=== PATIENT | female | born 1995 | race Caucasian/White ===

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

== ENCOUNTER → 2017-01-31 | Outpatient (CLI) | payer OTHER ==
--- NOTE | 2017-01-31 11:03 | REP ---
Clinical: Cough . Comparison: None . Technique: PA and lateral. Findings: The mediastinum and cardiac silhouette are normal. The lung howe are clear and without acute consolidation, effusion, or pneumothorax. The skeletal structures are intact and normal. Impression: 1. No acute cardiopulmonary process. Signed by Seymour Solomon MD 01/31/2017 10:54 A
== END ==
LOC: M LRY 10:36
PROVIDERS: ATTEND Nurse Practitioner Family
DX: R05 Cough (principal)

== ENCOUNTER 2017-02-12 08:45 | Outpatient (RCR) | payer OTHER, SELFPAY | END 2017-02-13 | LOC: M OUTALCOH 08:45 | PROVIDERS: ATTEND Psychiatry & Neurology Psychiatry | DX: F12.20 Cannabis dependence, uncomplicated (principal); F14.20 Cocaine dependence, uncomplicated ==

== ENCOUNTER 2017-02-14 12:49 | Outpatient (RCR) | payer OTHER | END 2017-03-16 | LOC: M OUTALCOH 12:49 | DX: F12.20 Cannabis dependence, uncomplicated (principal); F14.20 Cocaine dependence, uncomplicated ==

== ENCOUNTER 2017-03-27 14:14 | Outpatient (RCR) | payer OTHER | END 2017-04-16 | LOC: M OUTALCOH 04-09 10:00 | DX: F12.20 Cannabis dependence, uncomplicated (principal); F14.20 Cocaine dependence, uncomplicated ==

== ENCOUNTER 2017-05-08 10:10 | Outpatient (RCR) | payer OTHER | END 2017-05-14 | LOC: M OUTALCOH 10:10 | DX: F12.20 Cannabis dependence, uncomplicated (principal); F14.20 Cocaine dependence, uncomplicated ==

== ENCOUNTER 2017-05-15 15:17 | Outpatient (RCR) | payer OTHER | END 2017-06-14 | LOC: M OUTALCOH 15:17 | DX: F12.20 Cannabis dependence, uncomplicated (principal); F14.20 Cocaine dependence, uncomplicated ==

== ENCOUNTER → 2017-05-23 | Outpatient (REF) | payer OTHER ==
[2017-05-23 15:16] LABS: CHLAMYDIA DNA AMPLIFICATION NEGATIVE (NEGATIVE); GC DNA AMPLIFICATION NEGATIVE (NEGATIVE)
== END ==
LOC: M SFHCWAGY 12:56
DX: Z11.3 Encounter for screening for infections with a predominantly sexual mode of transmission (principal)
CPT/HCPCS: 87591

== ENCOUNTER → 2017-05-30 | Outpatient (REF) | payer OTHER ==
[2017-05-30 17:12] LABS: HEMATOCRIT 35.4 % (36.0-47.0); HEMOGLOBIN 11.3 g/dl (12.0-16.0); MEAN CORPUSCULAR HEMOGLOBIN 28.3 pg (27.0-33.0); MEAN CORPUSCULAR HGB CONC 31.9 g/dl (32.0-36.5); MEAN CORPUSCULAR VOLUME 88.7 fl (80.0-96.0); PLATELET COUNT, AUTOMATED 197 10^3/uL (150-450); RED BLOOD COUNT 3.99 10^6/uL (4.00-5.40); RED CELL DISTRIBUTION WIDTH 13.4 % (11.5-14.5); WHITE BLOOD COUNT 7.1 10^3/uL (4.0-10.0)
[2017-05-30 17:20] LABS: ANION GAP 7 MEQ/L (8-16); BLOOD UREA NITROGEN 12 MG/DL (7-18); CALCIUM LEVEL 8.7 MG/DL (8.5-10.1); CARBON DIOXIDE LEVEL 28 MEQ/L (21-32); CHLORIDE LEVEL 106 MEQ/L (98-107); CREATININE FOR GFR 0.58 MG/DL (0.55-1.30); GLUCOSE, FASTING 81 MG/DL (70-100); POTASSIUM SERUM 4.1 MEQ/L (3.5-5.1); SODIUM LEVEL 141 MEQ/L (136-145)
== END ==
LOC: M SFHCLERA 11:21
DX: K92.1 Melena (principal)
CPT/HCPCS: 80048

== ENCOUNTER 2017-06-18 09:20 | Outpatient (RCR) | payer OTHER | END 2017-07-14 | LOC: M OUTALCOH 06-23 08:45 | DX: F12.20 Cannabis dependence, uncomplicated (principal); F14.20 Cocaine dependence, uncomplicated ==

== ENCOUNTER → 2018-02-17 | Outpatient (REF) | payer OTHER ==
[2018-02-17 18:02] LABS: CHLAMYDIA DNA AMPLIFICATION NEGATIVE (NEGATIVE); GC DNA AMPLIFICATION NEGATIVE (NEGATIVE)
== END ==
LOC: M SFHCWAGY 13:25
DX: Z11.3 Encounter for screening for infections with a predominantly sexual mode of transmission (principal)
CPT/HCPCS: 87591

== ENCOUNTER 2018-03-23 04:54 | Emergency (ER) | payer OTHER ==
[~2018-03-23] VITALS: Ht 157.5 cm; Wt 52.3 kg
[2018-03-23 04:54] VITALS: BP 148/85
[2018-03-23] MEDS ORDERED: KETOROLAC 60 MG/2 ML VIAL (J1885) IM ONE (06:15)
--- NOTE | 2018-03-23 07:45 | REP ---
Clinical: Trauma. Technique: AP, lateral, bilateral oblique and sunrise views left knee. Findings: The osseous structures and joint spaces are intact and normal. There is no evidence for acute fracture or dislocation. No joint effusion is appreciated. Surrounding soft tissues are unremarkable. No subcutaneous emphysema or radiodense foreign body. Impression: Normal examination. No acute fracture or dislocation. Electronically Signed by Seymour Solomon MD 03/23/2018 07:37 A
== END 2018-03-23 06:15 | disposition home or self-care (01) ==
LOC: M ED 04:54
DX: S80.02XA Contusion of left knee, initial encounter (principal); Y92.009 Unspecified place in unspecified non-institutional (private) residence as the place of occurrence of the external cause; W22.8XXA Striking against or struck by other objects, initial encounter

== ENCOUNTER → 2018-05-13 | Outpatient (REF) | payer OTHER ==
[2018-05-13 18:18] LABS: CHLAMYDIA DNA AMPLIFICATION NEGATIVE (NEGATIVE); GC DNA AMPLIFICATION NEGATIVE (NEGATIVE)
== END ==
LOC: M SFHCLERA 09:55
PROVIDERS: ATTEND Physician Assistant
DX: N89.8 Other specified noninflammatory disorders of vagina (principal)

== ENCOUNTER → 2018-08-14 | Outpatient (REF) | payer MEDICAID, OTHER ==
[2018-08-14 15:28] LABS: CHLAMYDIA DNA AMPLIFICATION POSITIVE (NEGATIVE); GC DNA AMPLIFICATION NEGATIVE (NEGATIVE)
== END ==
LOC: M SFHCWAGY 11:46
PROVIDERS: ATTEND Family Medicine
DX: Z11.3 Encounter for screening for infections with a predominantly sexual mode of transmission (principal)

== ENCOUNTER → 2018-08-25 | Outpatient (REF) | payer MEDICAID ==
[2018-08-25 14:23] LABS: HCG, SERUM QUALITATIVE POSITIVE (NEGATIVE)
== END ==
LOC: M SFHCWAGY 11:53
PROVIDERS: ATTEND Nurse Practitioner Family
DX: N92.6 Irregular menstruation, unspecified (principal)

== ENCOUNTER 2018-08-30 11:32 | Emergency (ER) | payer MEDICAID, OTHER ==
[~2018-08-30] VITALS: Ht 157.5 cm; Wt 54.5 kg
[2018-08-30] MEDS ORDERED: NS 1,000 ML IV ONE (12:00)
[2018-08-30] MEDS ORDERED: METOCLOPRAMIDE INJ 10MG/2ML VIAL (J2765) IV ONE (12:00)
[2018-08-30 12:14] LABS: BASO % 0.7 % (0.0-1.0); EOS # 0.1 10^3/uL (0.0-0.50); EOS % 2.4 % (0.0-3.0); HEMATOCRIT 38.2 % (36.0-47.0); HEMOGLOBIN 12.8 g/dl (12.0-15.5); LYMPH # 0.8 10^3/uL (1.5-6.5); LYMPH % 14.5 % (24.0-44.0); MEAN CORPUSCULAR HEMOGLOBIN 30.5 pg (27.0-33.0); MEAN CORPUSCULAR HGB CONC 33.5 g/dl (32.0-36.5); MEAN CORPUSCULAR VOLUME 91.2 fl (80.0-96.0); MONO # 0.5 10^3/uL (0.0-0.8); MONO % 7.8 % (0.0-5.0); NEUTROPHILS # 4.3 10^3/uL (1.8-7.7); NEUTROPHILS % 74.4 % (36.0-66.0); PLATELET COUNT, AUTOMATED 194 10^3/uL (150-450); RED BLOOD COUNT 4.19 10^6/uL (4.00-5.40); WHITE BLOOD COUNT 5.7 10^3/uL (4.0-10.0)
[2018-08-30 12:23] LABS: BILIRUBIN, URINE MANUAL OBSCURED (NEGATIVE); GLUCOSE, URINE (UA) MANUAL NEGATIVE (NEGATIVE); KETONE, URINE MANUAL OBSCURED mg/dL (NEGATIVE); UROBILINOGEN, URINE MANUAL OBSCURED mg/dl (NORMAL)
[2018-08-30 12:42] LABS: BLOOD UREA NITROGEN 11 MG/DL (7-18); CALCIUM LEVEL 8.8 MG/DL (8.5-10.1); CARBON DIOXIDE LEVEL 29 MEQ/L (21-32); CHLORIDE LEVEL 108 MEQ/L (98-107); GLOMERULAR FILTRATION RATE > 60.0 (>60); GLUCOSE, FASTING 96 MG/DL (70-100); HCG, SERUM QUANTITATIVE 9 MIU/ML; SODIUM LEVEL 140 MEQ/L (136-145)
[2018-08-30 12:43] LABS: BACTERIA, URINE NONE SEEN; HYALINE CAST, URINE NONE SEEN /lpf (0-1); MUCUS, URINE SMALL AMOUNT (NEGATIVE); RBC, URINE TNTC /hpf (0-3); SQUAMOUS EPITHELIAL CELL URINE MOD AMOUNT /hpf (SMALL AMT)
[2018-08-30 13:12] VITALS: BP 114/73
[2018-08-30] MEDS ORDERED: REGL10TA6 PO (13:16)
--- NOTE | 2018-08-31 07:01 | REP ---
PELVIC ULTRASOUND: Real-time sonographic evaluation of pelvic performed utilizing transabdominal and endovaginal technique. The uterus measures 7.6 x 5.1 x 3.5 cm. Endometrial thickness is 4 mm. There is no endometrial fluid collection or gestational sac. Ovaries are normal in size and echotexture, right ovary measuring 2.2 x 2.2 x 1.5 cm and left ovary 2.9 x 1.6 x 2.2 cm. There is no adnexal mass or free fluid. No torsion is seen of either ovary. Differential diagnosis would include very early intrauterine , missed AB or ectopic . Suggest correlation with serial quantitative beta HCG values. Electronically Signed by Timothy Rodriguez MD 08/31/2018 08:27 A
== END 2018-08-30 13:39 | disposition home or self-care (01) ==
LOC: M ED 11:32
DX: Z32.01 Encounter for pregnancy test, result positive (principal); O20.8 Other hemorrhage in early pregnancy; O99.89 Other specified diseases and conditions complicating pregnancy, childbirth and the puerperium; R10.2 Pelvic and perineal pain; O99.341 Other mental disorders complicating pregnancy, first trimester; Z88.8 Allergy status to other drugs, medicaments and biological substances
CPT/HCPCS: 76801; 76817; 80048; 81000; 84702; 85025; 86850; 86900; 86901; 87086; 93976; 96361; 96374; 99284; J2765

== ENCOUNTER 2018-09-03 14:04 | Emergency (ER) | payer MEDICAID ==
[~2018-09-03] VITALS: Ht 157.5 cm; Wt 54.1 kg
[~2018-09-03 14:04] MED LIST: REGL10TA6 PO
[2018-09-03 15:44] VITALS: BP 118/73
== END 2018-09-03 15:55 | disposition home or self-care (01) ==
LOC: M ED 14:04
DX: O03.9 Complete or unspecified spontaneous abortion without complication (principal); O04.80 (Induced) termination of pregnancy with unspecified complications; Z72.0 Tobacco use; F19.10 Other psychoactive substance abuse, uncomplicated; Z79.899 Other long term (current) drug therapy

== ENCOUNTER → 2018-10-16 | Outpatient (REF) | payer OTHER | LOC: M LAB REF 09:14 | PROVIDERS: ATTEND Physician Assistant | DX: L03.115 Cellulitis of right lower limb (principal) ==

== ENCOUNTER → 2018-10-26 | Outpatient (REF) | payer OTHER ==
[2018-10-26 22:05] LABS: APPEARANCE, URINE CLOUDY (CLEAR); BACTERIA, URINE AUTO 2+ (NEGATIVE); BILIRUBIN, URINE AUTO NEGATIVE (NEGATIVE); BLOOD, URINE BLOOD NEGATIVE (NEGATIVE); COLOR, URINE YELLOW (YELLOW); GLUCOSE, URINE (UA) AUTO NEGATIVE (NEGATIVE); KETONE, URINE AUTO TRACE mg/dL (NEGATIVE); LEUKOCYTE ESTERASE, URINE AUTO 2+ (NEGATIVE); MUCUS, URINE LARGE (NEGATIVE); NITRITE, URINE AUTO NEGATIVE (NEGATIVE); PROTEIN, URINE AUTO 1+ mg/dL (NEGATIVE); RBC, URINE AUTO 3 /HPF (0-3); SPECIFIC GRAVITY URINE AUTO 1.027 (1.002-1.035); SQUAMOUS EPITHELIAL CELL UR AU 15 /HPF (0-6); UROBILINOGEN, URINE AUTO 0.2 mg/dL (0.0-2.0); WBC, URINE AUTO 23 /HPF (0-3)
== END ==
LOC: M LAB REF 08:14
PROVIDERS: ATTEND Physician Assistant Medical
DX: N39.0 Urinary tract infection, site not specified (principal)

== ENCOUNTER → 2018-11-09 | Outpatient (REF) | payer OTHER ==
[~2018-11-09] MED LIST changes: +BUSP10TA PO; +CYMB1CAP4 PO; +LEVO500T3 PO; +METR-265 PO; +SULF1TAB93; +SULF400T14 PO; +[UNRECOGNIZED DRUG - CODE] PO
[2018-11-09 21:16] LABS: CHLAMYDIA DNA AMPLIFICATION NEGATIVE (NEGATIVE); GC DNA AMPLIFICATION NEGATIVE (NEGATIVE)
== END ==
LOC: M LAB REF 16:32
PROVIDERS: ATTEND Internal Medicine
DX: N76.0 Acute vaginitis (principal)

== ENCOUNTER 2019-01-06 17:59 | Inpatient (IN) | payer OTHER ==
[~2019-01-06] VITALS: Ht 157.5 cm; Wt 51.9 kg
[~2019-01-06 17:59] MED LIST changes: -BUSP10TA PO; -CYMB1CAP4 PO; -LEVO500T3 PO; -METR-265 PO; -SULF1TAB93; -SULF400T14 PO; -[UNRECOGNIZED DRUG - CODE] PO
[2019-01-06] MEDS ORDERED: METR-265 PO (18:14)
[2019-01-06] MEDS ORDERED: SULF1TAB93 (18:14)
[2019-01-06] MEDS ORDERED: LEVO500T3 PO (18:14)
[2019-01-06] MEDS ORDERED: SULF1TAB72 PO (19:29)
[2019-01-06] MEDS ORDERED: BUSP10TA PO (19:30)
[2019-01-06] MEDS ORDERED: CYMB1CAP4 PO (19:31)
[2019-01-06] MEDS ORDERED: NS 1,000 ML IV ONE (20:00)
[2019-01-06] MEDS ORDERED: ACETAMINOPHEN TAB 650MG DOSE (2X325MG) PO ONE (20:00)
[2019-01-06 20:15] LABS: BASO % 0.4 % (0.0-1.0); EOS % 0.7 % (0.0-3.0); HEMATOCRIT 35.7 % (36.0-47.0); HEMOGLOBIN 12.5 g/dl (12.0-15.5); LYMPH # 0.7 10^3/uL (1.5-5.0); LYMPH % 11.4 % (24.0-44.0); MEAN CORPUSCULAR VOLUME 85.6 fl (80.0-96.0); MONO # 0.3 10^3/uL (0.0-0.8); MONO % 5.3 % (0.0-5.0); NEUTROPHILS # 4.7 10^3/uL (1.5-8.5); NEUTROPHILS % 81.8 % (36.0-66.0); PLATELET COUNT, AUTOMATED 172 10^3/uL (150-450); RED BLOOD COUNT 4.17 10^6/uL (4.00-5.40); WHITE BLOOD COUNT 5.7 10^3/uL (4.0-10.0)
[2019-01-06 20:42] LABS: ALBUMIN 4.1 GM/DL (3.2-5.2); ALT/SGPT 31 U/L (12-78); BILIRUBIN,DIRECT 0.2 MG/DL (0.0-0.2); BILIRUBIN,TOTAL 0.8 MG/DL (0.2-1.0); BLOOD UREA NITROGEN 13 MG/DL (7-18); CALCIUM LEVEL 8.5 MG/DL (8.5-10.1); CARBON DIOXIDE LEVEL 24 MEQ/L (21-32); CHLORIDE LEVEL 102 MEQ/L (98-107); CREATININE FOR GFR 0.79 MG/DL (0.55-1.30); GLOMERULAR FILTRATION RATE > 60.0 (>60); GLUCOSE, FASTING 93 MG/DL (70-100); LIPASE 70 U/L (73-393); POTASSIUM SERUM 3.5 MEQ/L (3.5-5.1); SODIUM LEVEL 134 MEQ/L (136-145); TOTAL PROTEIN 7.2 GM/DL (6.4-8.2)
[2019-01-06] MEDS ORDERED: VANCOMYCIN HCL 1,000 MG, VIAL MATE ADAPTER 1 EACH in D5W 250 ML IV ONE (21:00)
[2019-01-06] MEDS ORDERED: LIDOCAINE W/EPINEPHRINE 1% 20ML VIAL INFIL ONE (22:45)
--- NOTE | 2019-01-06 22:51 | HPEPDOC ---
[facility] Medical History & Physical Date of Admission Jan 06, 2019 Date of Service: Jan 06, 2019 Primary Care Physician: FER MORALES M.D. Attending Physician: HORACIO LUNSFORD MD History and Physical TIME OF SERVICE: 11:19 PM CHIEF COMPLAINT: Lower extremity pain and swelling HISTORY OF PRESENT ILLNESS: This is a 23-year-old female who developed lesions that were red, raised and tender about 7 days ago. 3 days ago she went to urgent care clinic and was started on Bactrim. Today she came to the hospital because the redness, pain and swelling became worse. The pain is 10 /10 in severity and sharp. Associated symptoms include fevers, chills, temperature of 101, nausea, vomiting, and abdominal pain. She has had a similar lesion at the right lower extremity in the past, that was managed with incision and drainage the fluid cultures were positive for staph. REVIEW OF SYSTEMS: 12 point review of systems negative except as listed in HPI PAST MEDICAL/ SURGICAL HISTORY: Status post incision and drainage of right lower extremity lesion. Status post tonsillectomy. Status post left knee surgery SOCIAL HISTORY: Smokes daily Has not travel recently. Has not been in a hot tub recently FAMILY HISTORY: Grandmother has coronary artery disease ALLERGIES: Please see below. HOME MEDICATIONS: Please see below. PHYSICAL EXAMINATION: VITAL SIGNS: Please see below. GENERAL APPEARANCE: Well-nourished, well-developed, appears slightly flushed HEENT: Normocephalic, atraumatic, mucous membranes moist and pink CARDIOVASCULAR: Regular rate and rhythm. No murmurs, rubs or gallops LUNGS: Clear to auscultation bilaterally on room air MUSCULOSKELETAL: Range of motion intact in all 4 extremities INTEGUMENT: There are 2 raised lesions, one is on the right lower extremity, and the second set of left lower extremity. The lesions are red, firm and tender on palpation. NEUROLOGICAL: Cranial nerves II 12 grossly intact. Speech is not dysarthric PSYCHIATRIC: Alert and oriented to person, place and time, able to understand and follow commands LABORATORY DATA: See below. ASSESSMENT: Ms. Vargas is a 23-year-old female the past medical history of abscess requiring incision and drainage who is admitted for recurrent bilateral lower extremity abscesses. PLAN: 1. Possible sepsis secondary to abscesses/cellulitis affecting both lower extremities SIRS criteria include temperature 101.8, and heart rate 103. Her WBC count and lactic acid are within normal limits Qsofa Score = 0 She received IV fluids and antibiotics Plan: Admit to general medical floor/continue with vancomycin/follow up blood cultures ordered as a part of the sepsis protocol/nothing by mouth pending [facility] surgery consult for incision and drainage of abscesses /fall precautions /Ibuprofen and Tylenol when necessary for fever and pain 2. Nausea and vomiting, likely due to viral infection Plan: IVF /Zofran when necessary 3. Tobacco abuse Plan: Tobacco cessation education/nicotine patch Mason Prediction Score for Risk of VTE = 3 points Pharmacologic prophylaxis is NOT indicated. DVT prophylaxis not needed because she is low risk. Disposition pending clinical course Vital Signs Vital Signs Date Time Temp Pulse Resp B/P (MAP) Pulse Ox O2 Delivery O2 Flow Rate FiO2 01/06/19 21:56 100.2 01/06/19 19:43 01/06/19 17:59 103 16 97 Room Air Laboratory Data Labs 24H Laboratory Tests 2 01/06/19 20:01: Immature Granulocyte % (Auto) 0.4, Neutrophils (%) (Auto) 81.8H, Lymphocytes (%) (Auto) 11.4L, Monocytes (%) (Auto) 5.3H, Eosinophils (%) (Auto) 0.7, Basophils (%) (Auto) 0.4, Neutrophils # (Auto) 4.7, Lymphocytes # (Auto) 0.7L, Monocytes # (Auto) 0.3, Eosinophils # (Auto) 0.0, Basophils # (Auto) 0.0, Nucleated Red Blood Cells % (auto) 0.0, Urine Color YELLOW, Urine Appearance CLEAR, Urine pH 6.0, Urine Specific [place] 1.012, Urine Protein NEGATIVE, Urine Glucose (UA) NEGATIVE, Urine Ketones 2+H, Urine Blood NEGATIVE, Urine Nitrite NEGATIVE, Urine Bilirubin NEGATIVE, Urine Urobilinogen 0.2, Urine Leukocyte Esterase TRACEH, Urine WBC (Auto) 2, Urine RBC (Auto) 2, Urine Hyaline Casts (Auto) 0, Urine Bacteria (Auto) NEGATIVE, Urine Squamous Epithelial Cells 5, Urine Mucus (Auto) SMALL, Urine Sperm (Auto) , Anion Gap 8, Glomerular Filtration Rate > 60.0, C alcium Level 8.5, Total Bilirubin 0.8, Direct Bilirubin 0.2, Aspartate Amino Transf (AST/SGOT) 23, Alanine Aminotransferase (ALT/SGPT) 31, Alkaline Phosphatase 90, Total Protein 7.2, Albumin 4.1, Albumin/Globulin Ratio 1.32, Lipase 70L 01/06/19 20:23: POC Beta HCG, Quantitative < 5.0 CBC/BMP Laboratory Tests 01/06/19 20:01 Microbiology Microbiology 01/06/19 Blood Culture, Received Pending 01/06/19 Urine Culture, Received Pending Home Medications Scheduled Buspirone HCl (Buspirone HCl) 10 Mg Tablet, 10 MG PO BID Cefaclor (Cefaclor) 500 Mg Capsule, 1 CAP PO BID Duloxetine HCl (Cymbalta) 20 Mg Capsule.dr, 20 MG PO DAILY Metronidazole (Metronidazole) 500 Mg Tablet, 500 MG PO BID Allergies Coded Allergies: ethynodiol (Verified Allergy, Intermediate, ORAL CONTRACEPTIVES- LIP SWELLING, RASH, 08/30/18) kava (Verified Allergy, Unknown, 08/30/18) A-FIB/CHADSVASC A-FIB History Current/History of A-Fib/PAF?: No Current PO Anticoag Therapy: No HORACIO LUNSFORD MD Jan 06, 2019 22:51
--- NOTE | 2019-01-06 23:10 | PHACANCOPD ---
PHARMACY VANCOMYCIN DOSING Pt Demographics Demographics Patient Age:23 , Weight:51.900 , Gender: female Adjusted Body Weight Date: 01/06/19, Adjusted Body Weight: Kg Events Past 24 Hours Events Past 24 Hours: NO: Dialysis, Diuretic Therapy, Change in CrCl, Fever, Elevation in WBC, Pending Diagnostics, Pending Procedures, Other Vancomycin Vancomycin Target Ranges: 15-20 mcg/ml Vancomycin Load Y/N: Yes Load Dose Date Time Vancomycin Load Dose: 1000mg Date: 01-06 Time: 2300 Vancomycin Dose Date: 01/06/19. Current Vancomycin Dose: [750mg q8h] Intermittent Dosing?: No Labs Labs Item Value Date Time White Blood Count 5.7 10^3/uL 01/06/192000 Creatinine 0.79 MG/DL 01/06/192000 Blood Urea Nitrogen 13 MG/DL 01/06/192000 Glomerular Filtration Rate > 60.0 01/06/192000 Vital Signs Label Value Date Time Patient Temperature 100.2 degrees F 01/06/19 2156 Micro Microbiology 01/06/19 Blood Culture, Received Pending 01/06/19 Blood Culture, Received Pending 01/06/19 Urine Culture, Received Pending Creatinine Clearance Date:01/06/19. Creatinine Clearance: [~85]. Pending Labs Trough 10-24 @1500 Assessment and Plan Maintaining Current Dose?: Yes Reason for dose change: No Dose Change Pharmacist Note Pharmacist Note Date: 01/06/19. Pharmacist note:Will mnitor and make adjustments as needed. [facility] Jan 06, 2019 23:10
[2019-01-06 23:44] LABS: ABG BASE EXCESS -2.6 (-2.0-2.0); ABG HCO3 20.7 MEQ/L (22.0-26.0); ABG O2 SATURATION 98.5 % (95.0-99.0); ABG PARTIAL PRESSURE CO2 30.9 mmHg (35.0-45.0); ABG PARTIAL PRESSURE O2 135.1 mmHg (75.0-100.0); ABG SITE RT RADIAL; ABG STANDARD HCO3 22.3 MEQ/L (22.0-26.0); ABG TOTAL CO2 21.6 MEQ/L (22.0-29.0); ABG pH (ARTERIAL) 7.443 UNITS (7.350-7.450)
[2019-01-07] MEDS: NS 1,000 ML IV SCH ×2 (01:21→08:27)
[2019-01-07] MEDS ORDERED: ONDANSETRON 4 MG TAB (S0181) As Ordered ONE (02:39)
[2019-01-07] MEDS ORDERED: IBUPROFEN 600 MG TAB As Ordered ONE (02:39)
[2019-01-07] MEDS ORDERED: IBUPROFEN 600 MG TAB PO ONE (03:00)
[2019-01-07] MEDS ORDERED: ONDANSETRON 4 MG TAB (S0181) PO PRN (03:15)
[2019-01-07] MEDS ORDERED: ACETAMINOPHEN 650MG ER TAB (TYLENOL ARTHRITIS) PO PRN (05:45)
[2019-01-07] MEDS ORDERED: NICOTINE 14 MG/24 HR TRANSDERMAL TD PRN (05:45)
[2019-01-07] MEDS ORDERED: ONDANSETRON 4 MG TAB (S0181) PO SCH (08:00)
[2019-01-07] MEDS ORDERED: VANCOMYCIN HCL 750 MG, VIAL MATE ADAPTER 1 EACH in D5W 250 ML IV SCH (08:00)
[2019-01-07] MEDS ORDERED: VANCOMYCIN HCL 500 MG in D5W MINI-BAG PLUS 100 ML IV SCH (09:00)
[2019-01-07 10:02] LABS: HEMATOCRIT 32.6 % (36.0-47.0); HEMOGLOBIN 11.1 g/dl (12.0-15.5); MEAN CORPUSCULAR HEMOGLOBIN 30.2 pg (27.0-33.0); MEAN CORPUSCULAR VOLUME 88.6 fl (80.0-96.0); PLATELET COUNT, AUTOMATED 139 10^3/uL (150-450); RED BLOOD COUNT 3.68 10^6/uL (4.00-5.40); WHITE BLOOD COUNT 3.7 10^3/uL (4.0-10.0)
[2019-01-07 10:44] LABS: BLOOD UREA NITROGEN 9 MG/DL (7-18); CARBON DIOXIDE LEVEL 24 MEQ/L (21-32); CHLORIDE LEVEL 110 MEQ/L (98-107); CREATININE FOR GFR 0.56 MG/DL (0.55-1.30); GLOMERULAR FILTRATION RATE > 60.0 (>60); GLUCOSE, FASTING 124 MG/DL (70-100); POTASSIUM SERUM 3.1 MEQ/L (3.5-5.1); SODIUM LEVEL 141 MEQ/L (136-145)
[2019-01-07] MEDS ORDERED: [UNRECOGNIZED DRUG - CODE] PO (14:31)
[2019-01-07 14:42] VITALS: BP 110/52
--- NOTE | 2019-01-07 20:37 | DS.PDOC ---
Discharge Summary General Date of Admission Jan 06, 2019 at 22:40 Date of Discharge 01/07/19 Primary Care Physician: FER MORALES M.D. Discharge Summary PROCEDURES PERFORMED DURING STAY: [None]. ADMITTING DIAGNOSES: Recurrent abscesses affecting both lower extremities Nausea and vomiting Tobacco abuse DISCHARGE DIAGNOSES: Recurrent abscesses affecting both lower extremities Nausea and vomiting Tobacco abuse COMPLICATIONS/CHIEF COMPLAINT: Cellulitis And Abscess Of Lower Extremity. HISTORY OF PRESENT ILLNESS: This is a 23-year-old female who developed lesions that were red, raised and tender about 7 days ago. 3 days ago she went to urgent care clinic and was started on Bactrim. Today she came to the hospital because the redness, pain and swelling became worse. The pain is 10 /10 in severity and sharp. Associated symptoms include fever, chills, temperature of 101, nausea, vomiting, and abdominal pain. She has had a similar lesion at the right lower extremity in the past, that was managed with incision and drainage the fluid cultures were positive for staph. HOSPITAL COURSE: Leg abscesses were drained by surgical team. Patient has recurrent multiple abscesses during past year. Patient will need evaluation for hypoglobulinemia, complement deficiency in the outpatient settings DISCHARGE MEDICATIONS: Please see below. ALLERGIES: Please see below. PHYSICAL EXAMINATION ON DISCHARGE: VITAL SIGNS: Please see below. VITAL SIGNS: Please see below. GENERAL APPEARANCE: Well-nourished, well-developed, appears slightly flushed HEENT: Normocephalic, atraumatic, mucous membranes moist and pink CARDIOVASCULAR: Regular rate and rhythm. No murmurs, rubs or gallops LUNGS: Clear to auscultation bilaterally on room air MUSCULOSKELETAL: Range of motion intact in all 4 extremities INTEGUMENT: There are 2 drained lesions on the right and left extremity NEUROLOGICAL: Cranial nerves II 12 grossly intact. Speech is not dysarthric PSYCHIATRIC: Alert and oriented to person, place and time, able to understand and follow commands LABORATORY DATA: Please see below. PROGNOSIS favorable ACTIVITY: As tolerated DIET: Regular DISCHARGE PLAN: Home DISPOSITION: 01 Home, Self-Care. DISCHARGE INSTRUCTIONS: Continue taking prescribed medications DISCHARGE CONDITION: Stable TIME SPENT ON DISCHARGE: Greater than 20 minutes. Vital Signs/I&Os Vital Signs Date Time Temp Pulse Resp B/P (MAP) Pulse Ox O2 Delivery O2 Flow Rate FiO2 01/07/19 14:42 97.8 64 16 110/52 (71) 100 Room Air I&O- Last 24 Hours up to 6 AM 01/07/19 06:00 Intake Total 1000 ml Balance 1000 ml Laboratory Data Labs 24H Laboratory Tests 2 01/06/19 22:40: Blood Gas Bicarbonate Standard 22.3, Arterial Blood pH 7.443, Arterial Blood Partial Pressure CO2 30.9L, Arterial Blood Partial Pressure O2 135.1H, Arterial Blood Total CO2 21.6L, Arterial Blood HCO3 20.7L, Arterial Blood Base Excess - 2.6L, Arterial Blood Oxygen Saturation 98.5, Arterial Blood Gas Puncture Site RT RADIAL 01/07/19 01:13: Lactic Acid Level 0.8 01/07/19 09:41: Nucleated Red Blood Cells % (auto) 0.0, Anion Gap 7L, Glomerular Filtration Rate > 60.0, Calcium Level 8.0L CBC/BMP Laboratory Tests 01/07/19 09:41 Microbiology Microbiology 01/07/19 Gram Stain - Final, Resulted 01/07/19 Wound Culture, Resulted Pending 01/06/19 Blood Culture, Received Pending 01/06/19 Blood Culture - Preliminary, Resulted No growth after 24 hours . All specim... 01/06/19 Urine Culture, Received Pending Discharge Medications Scheduled Buspirone HCl (Buspirone HCl) 10 Mg Tablet, 10 MG PO BID, (Reported) Cefaclor (Cefaclor) 500 Mg Capsule, 1 CAP PO BID Duloxetine HCl (Cymbalta) 20 Mg Capsule.dr, 20 MG PO DAILY, (Reported) Metronidazole (Metronidazole) 500 Mg Tablet, 500 MG PO BID, (Reported) Allergies Coded Allergies: ethynodiol (Verified Allergy, Intermediate, ORAL CONTRACEPTIVES- LIP SWELLING, RASH, 08/30/18) kava (Verified Allergy, Unknown, 08/30/18) DONNA PAEZ DO Jan 07, 2019 20:37
--- NOTE | 2019-01-08 10:15 | CR ---
DATE OF CONSULTATION: CHIEF COMPLAINT: Left lower leg pain. HISTORY OF PRESENT ILLNESS: The patient is a 23-year-old female who presents with a history of multiple abscesses on her lower extremities. She comes in now with a lesion on her left lower leg that is red and very painful, she has had this for about 7 days now. Two days ago she went to Urgent Care and was started on Bactrim; however, she came to the hospital because it was increasingly painful and the swelling was getting worse. She has subjective fever of 101. No other complaints. No nausea or vomiting. No other fevers or chills other than that. She has had previous lesions similar to that one on the right leg in the past that were managed with incision and drainage and had positive cultures for Staphylococcus. She has already been admitted to hospitalist service, they failed to consult me from the emergency room; however, by time I was called to come down and see her she is still in the emergency room, has not left there yet. The wound in the leg has already opened up spontaneously on its own and is actively draining. She feels tremendously better just having IV fluids. She has no current complaints and is anxious to go home. PAST MEDICAL HISTORY: Positive for tobacco abuse. PAST SURGICAL HISTORY: Incision and drainage of right lower extremity, left knee surgery and tonsillectomy. SOCIAL HISTORY: Smokes a pack a day. Denies any drug or alcohol abuse. FAMILY HISTORY: Noncontributory. ALLERGIES: ETHYNODIOL. MEDICATIONS: Please see medical record. REVIEW OF SYSTEMS: Pertinent positives and negatives as stated in the history of present illness. PHYSICAL EXAMINATION: General: Alert and oriented times three. No acute distress. Vitals: Temperature 97.8, pulse 64, respirations 16, blood pressure 110/52, pulse oximetry 100 percent room air. HEENT: Pupils equal round react to light and accommodation. Heart: S1, S2 regular rate. Lungs: Clear to auscultation bilaterally. Abdomen: Soft, nontender, nondistended. Extremities: No clubbing, cyanosis or edema. On the right lower extremity just proximal to the knee on the lateral side there is a scar from what appears to be a recent abscess that is healed. There are no signs of fluid collections there or erythema. There is a lesion on the left lower leg anterior that is the same size, probably 4-5 cm in diameter that is erythematous. In the middle there are two pinpoint holes that are draining purulent fluid. It is very tender to palpation. I was able to take an 11 blade scalpel and connected the two pinpoint holes together and expressed a large volume of purulent fluid from this area and then covered it with a sterile 4x4 gauze. LABORATORY DATA: White count 3.7, hemoglobin 11.1. ASSESSMENT/PLAN: The patient 23-year-old female with left lower extremity abscess status post spontaneous drainage, I also opened it up slightly in the emergency room with an 11 blade scalpel. RECOMMENDATIONS: Discharge home on oral antibiotics, keep the wound clean, continue to change the dressing at least once a day if not more, continue with antibiotics until they are done. If any more abscesses develop or if this one does not heal, she can come and see me in the office.
== END 2019-01-07 14:44 | disposition home or self-care (01) | DRG 383 ==
LOC: M ED 17:59 → M ED INP 22:40
PROVIDERS: ADMIT Internal Medicine; ATTEND Internal Medicine
PROC: 0H9LXZZ Drainage of Left Lower Leg Skin, External Approach (ICD-10-PCS; principal; 2019-01-06)
DX: L02.415 Cutaneous abscess of right lower limb (principal); F17.200 Nicotine dependence, unspecified, uncomplicated; R11.2 Nausea with vomiting, unspecified; B34.9 Viral infection, unspecified; Z79.899 Other long term (current) drug therapy; Z88.8 Allergy status to other drugs, medicaments and biological substances; L02.416 Cutaneous abscess of left lower limb; L03.115 Cellulitis of right lower limb; L03.116 Cellulitis of left lower limb

== ENCOUNTER → 2019-03-31 | Outpatient (REF) | payer OTHER ==
[~2019-03-31] MED LIST changes: +BUSP10TA PO; +CYMB1CAP4 PO; +LEVO500T3 PO; +METR-265 PO; +SULF1TAB93; +SULF400T14 PO; +[UNRECOGNIZED DRUG - CODE] PO
[2019-03-31 20:22] LABS: APPEARANCE, URINE CLOUDY (CLEAR); BACTERIA, URINE AUTO NEGATIVE (NEGATIVE); BILIRUBIN, URINE AUTO NEGATIVE (NEGATIVE); BLOOD, URINE BLOOD NEGATIVE (NEGATIVE); COLOR, URINE YELLOW (YELLOW); GLUCOSE, URINE (UA) AUTO NEGATIVE (NEGATIVE); KETONE, URINE AUTO NEGATIVE (NEGATIVE); LEUKOCYTE ESTERASE, URINE AUTO NEGATIVE (NEGATIVE); NITRITE, URINE AUTO NEGATIVE (NEGATIVE); PROTEIN, URINE AUTO NEGATIVE (NEGATIVE); RBC, URINE AUTO 0 /HPF (0-3); SPECIFIC GRAVITY URINE AUTO 1.026 (1.002-1.035); SQUAMOUS EPITHELIAL CELL UR AU 5 /HPF (0-6); WBC, URINE AUTO 0 /HPF (0-3)
[2019-03-31 21:59] LABS: CHLAMYDIA DNA AMPLIFICATION NEGATIVE (NEGATIVE); GC DNA AMPLIFICATION NEGATIVE (NEGATIVE)
== END ==
LOC: M LAB REF 20:09
PROVIDERS: ATTEND Physician Assistant
DX: N93.8 Other specified abnormal uterine and vaginal bleeding (principal)

== ENCOUNTER 2019-04-15 16:07 | Emergency (ER) | payer OTHER ==
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
--- NOTE | 2019-04-15 17:34 | REP ---
RIGHT WRIST, TWO VIEWS: There is no evidence of an acute fracture, dislocation or intrinsic bone disease. IMPRESSION: No fracture or dislocation. Electronically Signed by Timothy Rodriguez MD 04/16/2019 12:40 P
[2019-04-15 18:07] VITALS: BP 117/57
== END 2019-04-15 18:13 | disposition home or self-care (01) ==
LOC: EDBD 16:07 → M ED 16:07
DX: S16.1XXA Strain of muscle, fascia and tendon at neck level, initial encounter (principal); S63.501A Unspecified sprain of right wrist, initial encounter; T14.8XXA Other injury of unspecified body region, initial encounter; V49.49XA Driver injured in collision with other motor vehicles in traffic accident, initial encounter; Y92.410 Unspecified street and highway as the place of occurrence of the external cause; Z88.8 Allergy status to other drugs, medicaments and biological substances; F17.210 Nicotine dependence, cigarettes, uncomplicated

== ENCOUNTER → 2019-06-17 | Outpatient (REF) | payer OTHER ==
[2019-06-17 20:37] LABS: CHLAMYDIA DNA AMPLIFICATION NEGATIVE (NEGATIVE); GC DNA AMPLIFICATION NEGATIVE (NEGATIVE)
== END ==
LOC: M LAB REF 16:56
PROVIDERS: ATTEND Physician Assistant
DX: N89.8 Other specified noninflammatory disorders of vagina (principal)

== ENCOUNTER → 2020-01-14 | Outpatient (REF) | payer MEDICAID, OTHER ==
[2020-01-14 13:03] LABS: HEMATOCRIT 35.2 % (36.0-47.0); HEMOGLOBIN 11.4 g/dl (12.0-15.5); MEAN CORPUSCULAR HEMOGLOBIN 27.9 pg (27.0-33.0); MEAN CORPUSCULAR HGB CONC 32.4 g/dl (32.0-36.5); MEAN CORPUSCULAR VOLUME 86.3 fl (80.0-96.0); PLATELET COUNT, AUTOMATED 206 10^3/uL (150-450); RED BLOOD COUNT 4.08 10^6/uL (4.00-5.40); WHITE BLOOD COUNT 6.1 10^3/uL (4.0-10.0)
[2020-01-14 14:13] LABS: HEPATITIS C VIRUS ABY INDEX 0.3 INDEX (<0.8); HIV 1&2 SCREEN CENTAUR NEGATIVE (NEGATIVE)
== END ==
LOC: M PLALAB 09:38
PROVIDERS: ATTEND Specialist
DX: Z34.01 Encounter for supervision of normal first pregnancy, first trimester (principal); Z3A.00 Weeks of gestation of pregnancy not specified

== ENCOUNTER 2020-02-10 06:53 | Emergency (ER) | payer OTHER ==
[~2020-02-10] VITALS: Ht 160 cm; Wt 57.1 kg
[2020-02-10 06:53] VITALS: BP 125/78
[2020-02-10] MEDS ORDERED: PRENTAB9 PO (06:59)
[2020-02-10 08:07] LABS: INFLUENZA A AMPLIFICATION NEGATIVE (NEGATIVE); INFLUENZA B AMPLIFICATION NEGATIVE (NEGATIVE)
== END 2020-02-10 07:42 | disposition home or self-care (01) ==
LOC: M ED 06:53
DX: J34.89 Other specified disorders of nose and nasal sinuses (principal); F17.200 Nicotine dependence, unspecified, uncomplicated; Z88.8 Allergy status to other drugs, medicaments and biological substances

== ENCOUNTER → 2020-02-22 | Outpatient (CLI) | payer SELFPAY ==
[~2020-02-22] MED LIST changes: +PRENTAB9 PO
== END ==
LOC: M LABSMTC 12:29
PROVIDERS: ATTEND Pediatrics
DX: Z11.59 Encounter for screening for other viral diseases (principal)

== ENCOUNTER → 2020-02-22 | Outpatient (CLI) | payer MEDICAID, OTHER | LOC: M WHC 10:06 | PROVIDERS: ATTEND Obstetrics & Gynecology | DX: Z34.92 Encounter for supervision of normal pregnancy, unspecified, second trimester (principal); Z3A.16 16 weeks gestation of pregnancy; Z53.9 Procedure and treatment not carried out, unspecified reason ==

== ENCOUNTER → 2020-03-14 | Outpatient (CLI) | payer MEDICAID ==
--- NOTE | 2020-03-14 11:05 | REP ---
INDICATION: ANATOMY COMPARISON: None. TECHNIQUE: Transabdominal obstetrical ultrasound with color Doppler evaluation. FINDINGS: Examination demonstrates a single live intrauterine in transverse (head to maternal left) presentation. motion is identified by technologist. Placenta is noted anterior and grade 0 without evidence for placenta previa or abruption. Amniotic fluid volume is normal. Cervix measures 3.5 cm in length and appears closed.. Gestational age by LMP 19 weeks 4 days with SAMUEL 08/04/2020. Gestational age by current measurements 19 weeks 4 days with SAMUEL 08/04/2020. FHR equals 149 beats per minute. BPD: 4.5 cm 19 weeks 4 days HC: 16.8 cm 19 weeks 3 days AC: 14.2 cm 19 weeks 4 days FL: 3.1 cm 19 weeks 3 days HL: 2.9 cm 19 weeks 4 days HC/AC: 1.19 Estimated weight 296 grams (40thpercentile). Anatomical assessment demonstrates normal structures including cranium, choroid plexus, cavum, cerebellum/posterior fossa, facial features, lungs, four-chamber heart/ventricular outflow tracts, diaphragm, stomach, cord insertion/three-vessel cord, kidneys/bladder, spine, and extremities. IMPRESSION: Single live intrauterine demonstrating appropriate interval growth. Anatomical assessment is complete and normal. <Electronically signed by Seymour Solomon > 03/14/20 1102
== END ==
LOC: M WHC 09:55
PROVIDERS: ATTEND Obstetrics & Gynecology
DX: Z34.82 Encounter for supervision of other normal pregnancy, second trimester (principal)

== ENCOUNTER → 2020-04-04 | Outpatient (REF) | payer OTHER, MEDICAID ==
[~2020-04-04] MED LIST changes: +[UNRECOGNIZED DRUG - CODE] PO; -[UNRECOGNIZED DRUG - CODE] PO
[2020-04-04 22:33] LABS: APPEARANCE, URINE CLOUDY (CLEAR); BACTERIA, URINE AUTO 1+ (NEGATIVE); BILIRUBIN, URINE AUTO NEGATIVE (NEGATIVE); BLOOD, URINE BLOOD NEGATIVE (NEGATIVE); COLOR, URINE YELLOW (YELLOW); GLUCOSE, URINE (UA) AUTO NEGATIVE (NEGATIVE); KETONE, URINE AUTO 2+ mg/dL (NEGATIVE); LEUKOCYTE ESTERASE, URINE AUTO 2+ (NEGATIVE); MUCUS, URINE LARGE (NEGATIVE); NITRITE, URINE AUTO NEGATIVE (NEGATIVE); PROTEIN, URINE AUTO 1+ mg/dL (NEGATIVE); RBC, URINE AUTO 2 /HPF (0-3); SPECIFIC GRAVITY URINE AUTO 1.026 (1.002-1.035); SQUAMOUS EPITHELIAL CELL UR AU 7 /HPF (0-6); UROBILINOGEN, URINE AUTO 0.2 mg/dL (0.0-2.0); WBC, URINE AUTO 8 /HPF (0-3)
[2020-04-05 00:49] LABS: CHLAMYDIA DNA AMPLIFICATION NEGATIVE (NEGATIVE); GC DNA AMPLIFICATION NEGATIVE (NEGATIVE)
== END ==
LOC: M LAB REF 22:09
PROVIDERS: ATTEND Physician Assistant Medical
DX: N39.0 Urinary tract infection, site not specified (principal)

== ENCOUNTER → 2020-05-24 | Outpatient (REF) | payer OTHER ==
[2020-05-24 15:48] LABS: HEMATOCRIT 32.1 % (36.0-47.0); HEMOGLOBIN 10.3 g/dl (12.0-15.5); MEAN CORPUSCULAR HEMOGLOBIN 29.1 pg (27.0-33.0); MEAN CORPUSCULAR HGB CONC 32.1 g/dl (32.0-36.5); MEAN CORPUSCULAR VOLUME 90.7 fl (80.0-96.0); PLATELET COUNT, AUTOMATED 187 10^3/uL (150-450); RED BLOOD COUNT 3.54 10^6/uL (4.00-5.40); WHITE BLOOD COUNT 8.6 10^3/uL (4.0-10.0)
== END ==
LOC: M PLALAB 11:08
PROVIDERS: ATTEND Advanced Practice Midwife
DX: Z3A.24 24 weeks gestation of pregnancy (principal)

== ENCOUNTER → 2020-06-06 | Outpatient (CLI) | payer OTHER | LOC: M LAB 07:40 | PROVIDERS: ATTEND Advanced Practice Midwife | DX: O99.810 Abnormal glucose complicating pregnancy (principal); Z3A.00 Weeks of gestation of pregnancy not specified ==

== ENCOUNTER 2020-07-27 05:38 | Inpatient (IN) | payer OTHER ==
[~2020-07-27] VITALS: Ht 160 cm; Wt 70.8 kg
[2020-07-27] VITALS (10 sets, daily range): BP systolic 106–135; BP diastolic 59–89
[~2020-07-27 05:38] MED LIST changes: +BACTDSTA; -SULF1TAB93
[2020-07-27] MEDS ORDERED: OXYTOCIN 30 UNITS IN 0.9% NaCl 500ML IV BAG (J2590) As Ordered ONE (07:27)
[2020-07-27] MEDS: OXYTOCIN DRIP 30 UNITS in IV 1 EA IV PRN (07:31)
[2020-07-27] MEDS ORDERED: LIDOCAINE 1% MDV 20ML VIAL As Ordered ONE (07:37)
[2020-07-27 07:48] LABS: CORD GAS ABE V -7.9; CORD GAS HCO3 V 18.9 MEQ/L; CORD GAS O2 SAT V 74.9 %; CORD GAS PCO2 V 43.4 mmHg; CORD GAS PH V 7.257 UNITS; CORD GAS PO2 V 35.9 mmHg; CORD GAS SBC V 17.7 MEQ/L; CORD GAS TCO2 V 20.2 MEQ/L
[2020-07-27 07:50] LABS: CORD GAS ABE A -13.1; CORD GAS O2 SAT A 73.6 %; CORD GAS PCO2 A 82.5 mmHg; CORD GAS PH A 7.003 UNITS; CORD GAS PO2 A 45.8 mmHg; CORD GAS SBC A 14.1 MEQ/L; CORD GAS TCO2 A 22.6 MEQ/L
[2020-07-27] MEDS ORDERED: METHYLERGONOVINE MALEATE 0.2 MG TAB PO PRN ×2 (08:20)
[2020-07-27] MEDS ORDERED: IBUPROFEN 600MG TAB PO PRN ×2 (08:20)
[2020-07-27] MEDS ORDERED: MEASLES,MUMPS,RUBELLA VACCINE INJ (MMR-II) (90707) SC SCH ×2 (08:20)
[2020-07-27] MEDS ORDERED: ACETAMINOPHEN 500 MG TAB PO PRN ×2 (08:20)
[2020-07-27] MEDS ORDERED: ACETAMINOPHEN TAB 650MG DOSE (2X325MG) PO PRN ×2 (08:20)
[2020-07-27] MEDS ORDERED: LIDOCAINE 1% MDV 20ML VIAL INFIL PRN (08:20)
[2020-07-27] MEDS ORDERED: DIBUCAINE 1% OINTMENT 30GM TOP PRN ×2 (08:20)
[2020-07-27] MEDS ORDERED: IBUPROFEN 800 MG TAB PO PRN (08:20)
[2020-07-27] MEDS ORDERED: RHOGAM 300 MCG (1500 IU) INJ (J2790) IM SCH ×2 (08:20)
[2020-07-27] MEDS ORDERED: ANUSOL HC CREAM 30GM TOP PRN ×2 (08:20)
[2020-07-27] MEDS ORDERED: DOCUSATE SODIUM 100MG CAPSULE PO PRN (08:20)
[2020-07-27] MEDS ORDERED: MOM 30ML SUSPENSION UDC PO PRN ×2 (08:20)
--- NOTE | 2020-07-27 08:41 | HPEPDOC ---
Obstetrical History & Physical General Date of Admission July 27, 2020 at 07:18 History of Present Illness 25yo at 38w6d presents with complaints of contractions that started late la st night. She is unsure if she ruptured. Reports movement. No vaginal bleeding. Chief Complaint: Contractions, term Information Provided By: Patient Age: 25 : 3 Care Care: Good Care Dating Final EDC: August 04, 2020 Final EDC by: LMP EGA at Admission: 38 Past Medical History Past Obstetrical History : Past Obstetrical History: Primgravida [employer] History: Theraputic , History of STD Past Medical History Surgical History: Denies/None, Tonsilectomy, Other (left knee) Family History Significant Family History: No pertinent family hx Social History Marital Status: Single * Smoker: current smoker Alcohol: Denies Drugs: marijuana Allergies Coded Allergies: ethynodiol (Verified Allergy, Intermediate, ORAL CONTRACEPTIVES- LIP SWELLING, RASH, 07/27/20) kava (Verified Allergy, Unknown, 07/27/20) Medications Scheduled No.137/Iron/Folic Acd ( Vitamin Tablet) 1 Each Tablet, 1 TAB PO DAILY Physical Examination Physical Examination GENERAL: Alert and oriented times three. BREAST: . ABDOMEN: Gravid and non-tender to touch. FETUS: Is vertex (VTX) by sterile vaginal examination (SVE), fetus is vertex (VTX) by Tuan. HEART RATE: Regular rate and rhythm. LUNGS: Clear to auscultation (CTA). Vital Signs/I&O Vital Signs Date Time Temp Pulse Resp B/P (MAP) Pulse Ox O2 Delivery O2 Flow Rate FiO2 07/27/20 06:03 70 126/82 (97) Laboratory Data 24H LABS Laboratory Tests 2 07/27/20 07:30: Cord Arterial Blood pH 7.003, Cord Arterial Blood PCO2 82.5, Cord Arterial Blood PO2 45.8, Cord Arterial Blood HCO3 20.0, Cord Arterial Blood Total CO2 22.6, Cord Arterial Blood Base Excess -13.1, Cord Arterial Base Excess (Standard 14.1, Cord Arterial Bld Oxygen Saturation 73.6, Cord Venous Blood pH 7.257, Cord Jaziel ous Blood PCO2 43.4, Cord Venous Blood PO2 35.9, Cord Venous Blood HCO3 18.9, Cord Venous Blood Total CO2 20.2, Cord Venous Base Excess (Actual) -7.9, Cord Venous Base Excess (Standard) 17.7, Cord Venous Blood Oxygen Saturation 74.9 07/27/20 07:34: Serology Scanned Report Hepatitis B Testing Pertinent Laboratoy Data Blood Type: O+ RBC Antibody Screen: Negative HIV: Negative Hepatitis B: Negative Hepatitis C: Negative Rapid Plasma Reagin: Nonreactive Rubella: Immune Chlamydia/Gonorrhea: Negative Glucose Tolerance Test: 143 (normal 3GTT) Vaginal Examination Dilation: complete Effacement: 100% Station: +2 Presentation: Cephalic presentation (face mentum anterior) Assessment Decelerations: Variable (unable to assess heart rate tracing secondary to patient discomfort and inability to monitor) Assessment/Plan Assessment 25-year-old 3 para 0 at 38 weeks 6 days in active labor On examination patient appeared to be completely dilated with a face presentation mentum anterior Plan Admit and orient. Anticipate normal spontaneous delivery (). C-S as appropriate. RAMIRO MITCHELL MD. July 27, 2020 08:41
--- NOTE | 2020-07-27 08:45 | DNPDOC ---
[facility] Delivery Note Delivery Note DATE OF DELIVERY: 07/27/2020 TIME OF : 0724 GENDER: Male. APGARS: 7 and 9 WEIGHT: 3224 g or 7 lbs. 10 oz. LACERATIONS: 1MLL ANESTHESIA: none ESTIMATED BLOOD LOSS: 400ml COUNTS: 5 laparotomy sponges accounted for prior to after delivery. 6 sharps removed from delivery field. CORD GASSES: 7.00,7.25 with base excess -13.1 and 7.9 respectively DELIVERY NOTE: On 07/27/2020 at 0724 Ms. Vargas a 25yo G3, now P1 had a vag inal delivery of a liveborn male infant Apgars 7 and 9 weight was 3324 g or 7 lbs. 10 oz. Patient presented in active labor unsure what time her water broke. She was assessed quickly and was noted to be completely dilated with face presentation, mentum anterior. She was having an overwhelming urge of pressure with involuntary pushing. She pushed and delivered face presentation, followed by delivery of the shoulders and corpus. was handed to mom with a good cry. Cord was clamped times two and was cut by support person under my direction. Placenta was then drained and delivered grossly intact. A premixed bag of 500 mL of normal saline with 30 units of Pitocin was then bolused along with uterine massage until the uterus was firm. On inspection there was a 1MLL that was repaired with 3-0 Vicryl after infusion with 1% lidocaine. On reinspection, cervix, vagina, perineum was grossly intact and hemostatic. Mom and baby in recovery on stable condition. The mother's decided to name her son RAMIRO Chi MD. July 27, 2020 08:45
[2020-07-27] MEDS ORDERED: PRENATAL VITAMINS CHEWABLE TABLET PO SCH (09:00)
[2020-07-27 09:29] LABS: HEMATOCRIT 32.7 % (36.0-47.0); HEMOGLOBIN 10.7 g/dl (12.0-15.5); MEAN CORPUSCULAR HEMOGLOBIN 28.5 pg (27.0-33.0); MEAN CORPUSCULAR HGB CONC 32.7 g/dl (32.0-36.5); PLATELET COUNT, AUTOMATED 197 10^3/uL (150-450); RED BLOOD COUNT 3.76 10^6/uL (4.00-5.40); WHITE BLOOD COUNT 14.9 10^3/uL (4.0-10.0)
[2020-07-27 11:11] LABS: HIV 1&2 SCREEN CENTAUR NEGATIVE (NEGATIVE)
[2020-07-27] MEDS: PRENATAL VITAMINS CHEWABLE TABLET PO SCH (14:58)
[2020-07-27] MEDS: DOCUSATE SODIUM 100MG CAPSULE PO PRN (15:04)
[2020-07-27] MEDS: IBUPROFEN 800 MG TAB PO PRN (15:04)
[2020-07-28 06:00] VITALS: BP 105/59
[2020-07-28] MEDS: PRENATAL VITAMINS CHEWABLE TABLET PO SCH (07:19)
[2020-07-28] MEDS: IBUPROFEN 800 MG TAB PO PRN ×2 (07:50→23:22)
--- NOTE | 2020-07-28 07:59 | IPNPDOC ---
Progress Note Date of Service: July 28, 2020 Day#: 1 Progress Note SUBJECT: Doing well without complaints. Ambulating, voiding and pain is well- controlled. Reports minimal lochia. OBJECTIVE: VITAL SIGNS: Within normal limits, afebrile. Alert and oriented times three. Abdomen: Fundus firm at U-2. Soft, NTTP. Ext: neg calf tenderness. ASSESSMENT: day #1 status post . Recovering in stable condition. PLAN: 1. Continue routine care 2. Discharge plans for tomorrow Cindy Chris MD VS, I&O, [facility] Vital Signs/I&O Vital Signs Date Time Temp Pulse Resp B/P (MAP) Pulse Ox O2 Delivery O2 Flow Rate FiO2 07/28/20 06:00 98.7 67 18 105/59 (74) 100 Room Air I&O- Last 24 Hours up to 6 AM 07/28/20 05:59 Intake Total 500 ml Output Total 800 ml Balance -300 ml Laboratory Data 24H LABS Laboratory Tests 2 07/27/20 09:17: Nucleated Red Blood Cells % (auto) 0.0, Syphilis Serology NONREACTIVE, HIV Antigen/Antibody Combo Qual NEGATIVE CBC/BMP Laboratory Tests 07/27/20 09:17 CINDY CHRIS MD. July 28, 2020 07:59
[2020-07-28 18:00] VITALS: BP 127/74
[2020-07-28] MEDS: DOCUSATE SODIUM 100MG CAPSULE PO PRN (18:16)
[2020-07-29 05:54] VITALS: BP 130/76
[2020-07-29] MEDS: PRENATAL VITAMINS CHEWABLE TABLET PO SCH (07:34)
[2020-07-29] MEDS: IBUPROFEN 800 MG TAB PO PRN (07:34)
[2020-07-29] MEDS ORDERED: DOK1CAP7 PO (07:51)
[2020-07-29] MEDS: DOCUSATE SODIUM 100MG CAPSULE PO PRN (07:51)
== END 2020-07-29 11:10 | disposition home or self-care (01) | DRG 560 ==
LOC: M LDO 05:38 → M LDI 07:18 → M OBS 08:18 → M LDI 12:05 → M OBS 12:05
PROVIDERS: ADMIT Obstetrics & Gynecology; ATTEND Obstetrics & Gynecology
PROC: 10E0XZZ Delivery of Products of Conception, External Approach (ICD-10-PCS; principal; 2020-07-27)
PROC: 0HQ9XZZ Repair Perineum Skin, External Approach (ICD-10-PCS; 2020-07-27)
DX: O64.2XX0 Obstructed labor due to face presentation, not applicable or unspecified (principal); Z3A.38 38 weeks gestation of pregnancy; Z37.0 Single live birth; O99.334 Smoking (tobacco) complicating childbirth; F17.210 Nicotine dependence, cigarettes, uncomplicated; O70.0 First degree perineal laceration during delivery

== ENCOUNTER 2022-06-01 04:51 | Emergency (ER) | payer OTHER ==
[~2022-06-01] VITALS: Ht 160 cm; Wt 53.1 kg
[~2022-06-01 04:51] MED LIST changes: +DOK1CAP4 PO; +LEVO1TAB39 PO; -LEVO500T3 PO
[2022-06-01 07:37] VITALS: BP 114/61
== END 2022-06-01 10:53 | disposition left against medical advice (07) ==
LOC: M ED 04:51
DX: S61.419A Laceration without foreign body of unspecified hand, initial encounter (principal); Y28.0XXA Contact with sharp glass, undetermined intent, initial encounter; Y93.89 Activity, other specified; Y99.8 Other external cause status; Z53.21 Procedure and treatment not carried out due to patient leaving prior to being seen by health care provider

== ENCOUNTER 2023-01-18 20:14 | Emergency (ER) | payer OTHER ==
[~2023-01-18] VITALS: Ht 165.1 cm; Wt 61.4 kg
[2023-01-18 20:20] VITALS: BP 134/75; TEMP 97; O2SAT 99
== END 2023-01-18 22:35 | disposition left against medical advice (07) ==
LOC: EDBD 20:14 → M ED 20:14
DX: Z53.21 Procedure and treatment not carried out due to patient leaving prior to being seen by health care provider (principal)